=== PATIENT | male | born 1945 | race African-American/Black ===

== ENCOUNTER 2020-02-06 12:41 | Outpatient (CLI) | payer OTHER, SELFPAY ==
--- NOTE | ~2020-02-06 | CT_ITS ---
EXAMINATION: CTA chest PE protocol DATE: 02/06/2020 13:42 INDICATION: Shortness of breath TECHNIQUE: Computed tomography angiography (CTA) of the chest was performed with 100 mL Omnipaque-350 intravenous contrast timed to evaluate the pulmonary arteries. Coronal maximum intensity projection 3D-reconstructions were created by the technologist. The dose-length product (DLP) was 270.10 mGy-cm. Automated exposure control and iterative reconstruction technique were employed. COMPARISON: None. FINDINGS: The pulmonary arteries are well-opacified. No pulmonary embolism is identified. There are m ultifocal, bilateral peripheral areas of groundglass opacity with some demonstrating visible intralob ular lines. Bilateral hilar and mediastinal lymphadenopathy is likely reactive. There is no pleural e ffusion or pneumothorax. The heart size is upper limits of normal. There are bridging osteophytes at multiple levels in the spine, consistent with diffuse idiopathic skeletal hyperostosis (DISH). IMPRESSION: 1. Commonly reported imaging features of COVID-19 pneumonia are present. Other processes such as infl uenza pneumonia and organizing pneumonia, as can be seen with drug toxicity and connective tissue dis ease, can cause a similar imaging pattern. Concern for COVID-19 pneumonia was discussed with Dr. Shipman at 1416 hours on 02/06/2020. 2. No evidence of pulmonary embolism. Reviewed, dictated and finalized at location A. IMPRESSION: 1. Commonly reported imaging features of COVID-19 pneumonia are present. Other processes such as influenza pneumonia and organizing pneumonia, as can be seen with drug toxicity and connective tissue disease, can cause a similar imaging p attern. Concern for COVID-19 pneumonia was discussed with Dr. Coker at 1416 hours on 02/06/2020. 2. No evidence of pulmonary embolism.
[2020-02-06 13:33] LABS: Estimated Glomerular Filt Rate > 60
== END 2020-02-06 12:42 | disposition home or self-care (01) ==
PROVIDERS: PCP Internal Medicine
DX: R06.02 Shortness of breath (principal); R91.8 Other nonspecific abnormal finding of lung field
CPT/HCPCS: 36415; 71275; Q9967

== ENCOUNTER 2020-02-06 15:05 | Emergency (ER) | payer OTHER, SELFPAY ==
[2020-02-06 15:14] VITALS: BP 161/78; PULSE 101; RESP 18; TEMP 36.7; O2SAT 95
[2020-02-06 15:30] VITALS: PULSE 92
[2020-02-06 15:34] LABS: Basophils Percent Auto 0.3 % (0.2-1.2); Eosinophils Percent Auto 0.1 % (0-4.4); Hematocrit 49.1 % (42.0-52.0); Hemoglobin 16.1 g/dL (14.0-18.0); Immature Granulocyte Absolute 0.07 K/mm3 (0.00-0.031); Immature Granulocyte Percent A 0.9 % (0-0.5); Lymphocytes Absolute Auto 1.09 K/mm3 (0.9-3.2); Lymphocytes Percent Auto 14.5 % (18.3-44.2); Mean Corpuscular HGB Conc 32.8 g/dl (32-36); Mean Corpuscular Hemoglobin 28.4 pg (26-34); Mean Corpuscular Volume 86.6 fl (80-100); Mean Platelet Volume 10.8 fl (7.4-10.4); Monocytes Absolute Auto 0.5 K/mm3 (0.1-0.6); Monocytes Percent Auto 6.8 % (2.6-8.5); Neutrophils Absolute Auto 5.8 K/mm3 (1.3-6.7); Neutrophils Percent Auto 77.4 % (45.5-73.1); Platelet Count Result 165 k/mm3 (150-375); Red Blood Count 5.67 M/mm3 (4.6-6.20); Red Cell Distribution Width 13.1 % (11.5-14.5); White Blood Count 7.5 K/mm3 (4.5-10.0)
[2020-02-06 15:38] LABS: Alveolar/Arterial O2 Gradient 34.9 mmHg; Base Excess ABG 0.2 mEq/l (+/-2.0); Fractional Inspired Oxygen 21 %; HCO3 ABG 24.7 mEq/l (22.0-26.0); Oxygen Content ABG 20.3 %vol (16.0-22.0); Oxygen Saturation ABG 93.6 % (95.0-100.0); Oxyhemoglobin 91.9 % THb (90.0-100.0); PCO2 ABG 39.8 mmHg (35.0-45.0); PO2 ABG 67.2 mmHg (80.0-100.0); Total Hemoglobin 15.7 g/dL (12.0-18.0); pH ABG 7.411 (7.350-7.450)
[2020-02-06 15:39] LABS: Device ROOM AIR; Modified Allen's Test Pass; Site Drawn RIGHT RADIAL
--- NOTE | 2020-02-06 15:48 | ED.SOB ---
HPI - SOB/Dyspnea General Chief Complaint: Shortness of Breath/Dyspnea Stated Complaint: SOB COVID + Time Seen by Provider: 02/06/20 15:14 Source: patient Mode of arrival: ambulatory Limitations: no limitations History of Present Illness HPI Narrative: A 74 y/o male presents to the ED with c/o SOB. Pt states that 1 week ago he started to get a cough and last night he started to have SOB that was worse when he was lying down. Pt used Albuterol with no relief. Today the patient had a chest CT done which showed viral pneumonia so he came to the ED to be evaluated. He denies fever. MD elicited complaint: shortness of breath Onset (ago): day(s) (1) Exacerbating factors: lying flat Associated symptoms: cough Related Data Home Medications Medication Instructions Recorded Confirmed loratadine [Claritin] 10 mg PO DAILY 02/06/20 metformin 1,000 mg PO BID 02/06/20 montelukast [Singulair] 10 mg PO DAILY 02/06/20 Allergies Allergy/AdvReac Type Severity Reaction Status Date / Time No Known Allergies Allergy Verified 02/06/20 15:19 Review of Systems Review of Systems: All systems reviewed & are unremarkable except as noted in HPI and below Constitutional: Constitutional: Denies fever(s) Respiratory: Respiratory: Reports cough and Reports dyspnea PMFSH Past Medical History Medical History (Updated 02/06/20 @ 16:41 by Connor Meade MD) Colon cancer Diabetes History of chemotherapy Surgical History Surgical History (Updated 02/06/20 @ 16:03 by Priti Glez) History of back surgery History of bowel resection Social History Social History (Updated 02/06/20 @ 16:04 by Priti Glez) Smoking status: Never smoker Exam Const: General: healthy appearing, no acute distress and well developed Nutritional Appearance: well nourished Orientation/consciousness: patient oriented x3 (alert) and Other orientation findings (Alert) Limitations: no limitations HENMT: Head: normocephalic and atraumatic Ears: external ears normal General nose exam: No nasal discharge present and no epistaxis Face and sinus: face symmetric Mouth: Yes lip normal, Yes tongue normal and Yes moist mucous membranes Throat: other (No exudate, no erythema) Eyes: Conjunctivae: conjunctivae normal Sclera: sclerae normal EOM: EOMs intact bilaterally Neck: Neck: full ROM, no lymphadenopathy and supple Thyroid: thyroid normal Chest: Chest palpation & inspection: no tenderness Resp: Effort & Inspection: normal respiratory effort Auscultation: clear to auscultation bilaterally, no rales, no rhonchi, no wheezes and other (breath sounds equal) Cardio: Rate: regular rate Rhythm: regular rhythm Heart sounds: no gallops and no murmurs GI: Inspection: non-distended GI Palp: No abdominal tenderness and Yes Soft to palpation Auscultation: other (bowel sounds present) : General: Yes no CVA tenderness Back/Spine/Pelvis: Back: no CVA tenderness Thoracic/Lumbar Spine: thoracic and lumbar spine normal to inspection Skin: General skin exam: normal color and no rashes or lesions noted Neuro: General: patient oriented x3 (alert), moves all extremities and no focal motor deficits Cranial nerves: Yes facial symmetry Speech: normal speech Motor exam (neuro): Motor abnormalities not present Extrem: General: normal to inspection, full ROM and no pedal edema Psych: Affect: normal affect Course Course Emergency Course: d/w pts pcp that he will need close f/u and high crp may indicate higher possibility of deterioration however pt is not currently hypoxic to require hopitalization d/w pt at age and with dm plaquenil might be warranted per guidelines out of [place], if he can get any plus albuterol and otherwise explicit instruction to return if severe sob ensues Vital Signs Vital signs: Vital Signs Temperature 36.7 C 02/06/20 15:14 Pulse Rate 101 H 02/06/20 15:14 Respiratory Rate 18 02/06/20 15:14 Blood Pressure 161/7
[2020-02-06 15:49] LABS: Blood Urea Nitrogen 14 mg/dL (9-20); Calcium 9.3 mg/dL (8.4-10.2); Carbon Dioxide 31 mmol/L (22-30); Chloride 99 mmol/L (98-107); Estimated CRCL calculation 65 ml/min; Estimated Glomerular Filt Rate > 60; Glucose 113 mg/dL (75-110); Lactate Dehydrogenase 563 U/L (313-618); Potassium 4.2 mmol/L (3.4-5.0); Sodium 140 mmol/L (137-145)
[2020-02-06 15:58] LABS: NT Pro B Type Natriuretic Pept 30 PG/ML (5-100); Troponin I < 0.012 ng/mL (0.000-0.034)
[2020-02-06 16:02] LABS: CRP 20.2 mg/dL (<1.0)
[2020-02-14 13:38] LABS: Pan-SARS RNA: Positive; SARS-CoV-2 RNA: Positive
== END 2020-02-06 17:25 | disposition home or self-care (01) ==
PROVIDERS: Emergency Provider Emergency Medicine
DX: J12.89 Other viral pneumonia (principal); B97.29 Other coronavirus as the cause of diseases classified elsewhere; E11.9 Type 2 diabetes mellitus without complications; Z85.038 Personal history of other malignant neoplasm of large intestine; Z92.21 Personal history of antineoplastic chemotherapy; Z79.84 Long term (current) use of oral hypoglycemic drugs; Z90.49 Acquired absence of other specified parts of digestive tract
CPT/HCPCS: 36415; 36600; 71275; 80048; 82728; 82805; 83615; 83880; 84484; 85025; 86140; 87635; 87804; 99284; Q9967; U0002